=== PATIENT | female | born 1960 | race Caucasian/White ===

== ENCOUNTER → 2020-04-07 | Outpatient (REF) | payer BC, OTHER ==
[~2020-04-07] MED LIST: ESTR3TA; GAS-80CH; IBUP800T; PERC5TAB8
== END ==
LOC: M LAB REF 16:57
PROVIDERS: ATTEND Physician Assistant
DX: L03.90 Cellulitis, unspecified (principal)

== ENCOUNTER → 2021-10-22 | Outpatient (CLI) | payer BC, OTHER | LOC: M PLAIMG 11:12 | PROVIDERS: ATTEND Chiropractor | DX: M51.26 Other intervertebral disc displacement, lumbar region (principal) ==